=== PATIENT | male | born 2000 | race Caucasian/White ===

== ENCOUNTER 2018-03-27 20:14 | Emergency (ER) | payer BC ==
[2018-03-27 20:58] VITALS: BP 132/79
--- NOTE | 2018-03-27 21:02 | UC ---
Throat Pain/Nasal Tai HPI - HPI Summary HPI Summary: 17 yo male presents requesting test for mono. He tells me that about 2 weeks ago he was feeling fatigued with sore throat, aches all over, and went to [facility] where he was dx'd with strep and placed on PCN. He has taken PCN for 10 days with resolution of his sore throat, but his other symptoms have persisted. He is requesting a test for mono. Denies fever, chills, cough, SOB, chest pain, abdominal pain, n/v. - History of Current Complaint Chief Complaint: UCGeneralIllness Stated Complaint: COUGH, AND CHEST CONGESTION Time Seen by Provider: 03/27/18 21:02 Hx Obtained From: Patient Onset/Duration: Gradual Onset Severity: Mild Pain Intensity: 4 Pain Scale Used: 0-10 Numeric - Allergies/Home Medications Allergies/Adverse Reactions: Allergies Allergy/AdvReac Type Severity Reaction Status Date / Time No Known Allergies Allergy Verified 03/27/18 20:50 Home Medications: Home Medications Fluoxetine (Nf) Cap [Fluoxetine HCl] 40 mg PO DAILY 03/27/18 [History Confirmed 03/27/18] Methylphenidate HCl [Methylphenidate ER] 60 mg PO DAILY 03/27/18 [History Confirmed 03/27/18] Penicillin VK 500 MG TAB(NF) [Penicillin VK 500 mg Tab] 500 mg PO DAILY [History Confirmed 03/27/18] PMH/Surg Hx/FS Hx/Imm Hx - Additional Past Medical History Additional PMH: ADHD Psychological History: Anxiety, Depression - Surgical History Surgical History: None - Family History Known Family History: Positive: None - Social History Occupation: Student Lives: Dormitory/Roommates Alcohol Use: Weekly Substance Use Type: Marijuana Smoking Status (MU): Never Smoked Tobacco Review of Systems Constitutional: Fatigue, Other - Body aches Skin: Negative ENT: Negative Respiratory: Negative Cardiovascular: Negative Musculoskeletal: Negative Neurological: Negative Psychological: Negative All Other Systems Reviewed And Are Negative: Yes Physical Exam - Summary Physical Exam Summary: GENERAL: NAD. WDWN. No pain distress. SKIN: No rashes, sores, lesions, or open wounds. HEENT: Head: AT/NC Eyes: EOM intact. Conjunctiva clear without inflammation or discharge. Ears: Hearing grossly normal. TMs intact, no bulging, erythema, or edema. Nose: Nasal mucosa pink and moist. NTTP maxillary and frontal sinus. Throat: Posterior oropharynx without exudates, erythema, or tonsillar enlargement. Uvula midline. NECK: Supple. Nontender. No lymphadenopathy. CHEST: CTAB. No r/r/w. No accessory muscle use. Breathing comfortably and in no distress. CV: RRR. Without m/r/g. Pulses intact. Cap refill <2seconds NEURO: Alert. PSYCH: Age appropriate behavior. Triage Information Reviewed: Yes Vital Signs: Initial Vital Signs Temp 99.6 F 03/27/18 20:53 Pulse 73 03/27/18 20:53 Resp 20 03/27/18 20:53 BP 132/79 03/27/18 20:53 Pulse Ox 100 03/27/18 20:53 Vital Signs Reviewed: Yes Throat Pain/Nasal Course/Dx - Course Course Of Treatment: Suspect viral illness or still recovering from strep. Will draw for CBC and mono and call him with results. - Differential Dx/Diagnosis Provider Diagnoses: Viral syndrome Discharge - Sign-Out/Discharge Documenting (check all that apply): Patient Departure All imaging exams completed and their final reports reviewed: No Studies - Discharge Plan Condition: Stable Disposition: HOME Patient Education Materials: Mononucleosis (ED) Referrals: No Primary Care Phys,NOPCP [Primary Care Provider] - Additional Instructions: If you develop a fever, shortness of breath, chest pain, new or worsening symptoms - please call your PCP or go to the ED. 1) Rest and drink plenty of fluids 2) May take tylenol or ibuprofen for any fever or discomfort - Billing Disposition and Condition Condition: STABLE Disposition: Home
[2018-03-28 11:05] LABS: ABS Basophils 0 10^3/ul (0-0.2); ABS Eosinophils 0.1 10^3/ul (0-0.6); ABS Lymphocytes 1.6 10^3/ul (1.0-4.8); ABS Monocytes 0.6 10^3/ul (0-0.8); ABS Nucleated RBC 0 10^3/ul; Hematocrit 41 % (42-52); Hemoglobin 13.8 g/dl (14.0-18.0); Lymphocyte % 18.9 % (25-47); Mean Corpuscular HGB Conc 33 g/dl (31-36); Mean Corpuscular Hemoglobin 26 pg (27-31); Mean Corpuscular Volume 78 fL (80-94); Mean Platelet Volume 9.1 um3 (7.4-10.4); Nucleated Red Blood Cells % 0.1; Platelet Count 178 10^3/ul (150-450); Red Cell Distribution Width 14 % (10.5-15); White Blood Count 8.2 10^3/ul (3.5-10.8)
--- NOTE | 2018-03-30 12:49 | UC ---
- Progress Note Progress Note: EBV IGM positive. This could be a recent infection or a recovery of an infection. His monospot was negative. Given his symptoms - please inform pt that he has a mono-like illness and should refrain from contact sports for 4-6weeks or longer if he has symptoms. If he develops worsening symptoms, should be rechecked. Follow up with [facility] for restrictions/clearance for sports. Discharge - Sign-Out/Discharge Documenting (check all that apply): Post-Discharge Follow Up All imaging exams completed and their final reports reviewed: No Studies - Discharge Plan Condition: Stable Disposition: HOME Patient Education Materials: Mononucleosis (ED) Forms: *Physical Education Release Referrals: No Primary Care Phys,NOPCP [Primary Care Provider] - Additional Instructions: If you develop a fever, shortness of breath, chest pain, new or worsening symptoms - please call your PCP or go to the ED. 1) Rest and drink plenty of fluids 2) May take tylenol or ibuprofen for any fever or discomfort - Billing Disposition and Condition Condition: STABLE Disposition: Home
== END 2018-03-27 21:31 | disposition home or self-care (01) ==
LOC: UCEAST 20:14
DX: B34.9 Viral infection, unspecified (principal); F41.9 Anxiety disorder, unspecified; F32.9 Major depressive disorder, single episode, unspecified; F12.90 Cannabis use, unspecified, uncomplicated; Z79.2 Long term (current) use of antibiotics
CPT/HCPCS: 36415; 85025; 86308; 86664; 86665; 99201; G0463